=== PATIENT | female | born 1990 | race Hispanic/Latino ===

== ENCOUNTER 2022-01-01 10:11 | Inpatient (IN) | payer SELFPAY ==
[2022-01-01] MEDS ORDERED: ONDANSETRON 4 MG/2 ML VIAL ONE (11:22)
[2022-01-01] MEDS ORDERED: MORPHINE 4 MG/ML SYR ONE (11:22)
[2022-01-01] MEDS ORDERED: NA CHLORIDE 0.9% 1,000 ML ONE (11:23)
[2022-01-01 11:34] LABS: Urine Blood 3+ (Negative); Urine Glucose Negative (Negative); Urine Protein Negative (Negative); Urine Specific Gravity 1.015 (1.005-1.030); Urine pH 6.5 (5.0-7.0)
[2022-01-01 11:46] LABS: Urine Bacteria <20 /HPF (<20); Urine RBC 21-50 /HPF (None Seen)
[2022-01-01 12:00] LABS: Albumin 3.4 g/dL (3.4-5.0); Bilirubin Total 0.9 mg/dL (0.2-1.0); Potassium 3.8 mmol/L (3.5-5.1); Protein, Total 7.9 g/dL (6.4-8.2)
[2022-01-01 12:06] LABS: Absolute Lymphocytes (CBC) 1.5 K/uL (0.7-4.9); Lymphocytes % 10.5 % (15.3-44.8); MPV 7.6 fL (7.6-11.3); RBC Red Blood Cell Count 4.29 M/uL (3.86-4.86)
[2022-01-01 12:35] LABS: Urine Specific Gravity/Preg 1.015 (1.005-1.030)
--- NOTE | 2022-01-01 12:42 | RAD REPORT ---
EXAM DESCRIPTION: CT - Abdomen Pelvis W Contrast - 01/01/2022 11:42 am CLINICAL HISTORY: RLQ abdominal pain COMPARISON: <Comparisons>CT study June 2012 TECHNIQUE: Biphasic, helical CT imaging of the abdomen and pelvis was performed following 100 ml non -ionic IV contrast. No oral contrast administered. All CT scans are performed using dose optimization technique as appropriate and may include automated exposure control or mA/KV adjustment according to patient size. FINDINGS: No suspicious findings in the lung bases. The liver, spleen, and pancreas show no suspicious findings. Gallbladder and biliary tree are also wi thout suspicious finding. Symmetric renal function is seen with no hydronephrosis or suspicious renal mass. No pyelonephritis o r acute parenchymal process. No bladder abnormalities. No adrenal abnormalities. Uterus and ovaries s how no suspicious findings. No stomach or acute small bowel finding identifiable. In the central mesenteric fat slightly below th e umbilical level there is a 4-5 centimeter diameter area of edematous/ inflammatory stranding. Centr ally positioned within this area are small clusters of extraluminal free air. No abscess or drainable fluid collection. The patient's appendix courses medially from the cecum with the tip of the appendi x is in this area of air and inflammatory stranding. The tortuous sigmoid colon abuts the inferior as pect of this mesenteric abnormality. Gold of the adjacent sigmoid colon are slightly thickened and e dematous. Minimal diverticulosis is present. No pneumatosis, free fluid or abnormal fluid collection. No other areas of abnormal free air. No h ernia, mass or bulky lymphadenopathy. No suspicious bony findings. IMPRESSION: Approximately 5 cm diameter area of edematous/inflammatory stranding in the central mese nteric fat with clustered small foci of extraluminal free air centrally positioned within the mesente carlos fat abnormality. Perforation etiology is not definitive. Appendicitis is possible. The tip of the appendix abuts the m esenteric abnormality with the remainder of the appendix normal in diameter. A perforated diverticuli tis/ colitis is also possible. Tortuous and redundant sigmoid colon abuts the inferior aspect of the mesenteric abnormality. The patient has minimal diverticulosis.
--- NOTE | 2022-01-01 13:11 | ER ---
Nurse's Notes [facility] Name: Babita Real Age: 31 yrs Sex: Female : 1990 Arrival Date: 01/01/2022 Time: 10:13 Bed 4 Private MD: Diagnosis: Lower abdominal pain, unspecified Presentation: 01/01 10:54 Chief complaint: Patient states: started having pain in the belly button and it em6 radiates to the left side. I initially though it was period cramps, but it has gotten worse. I'm currently on my cycle. Coronavirus screen: At this time, the client does not indicate any symptoms associated with coronavirus-19. Ebola Screen: Patient negative for fever greater than or equal to 101.5 degrees Fahrenheit, and additional compatible Ebola Virus Disease symptoms. Initial Sepsis Screen: Does the patient meet any 2 criteria? No. Patient's initial sepsis screen is negative. Does the patient have a suspected source of infection? No. Patient's initial sepsis screen is negative. Risk Assessment: Do you want to hurt yourself or someone else? Patient reports no desire to harm self or others. Onset of symptoms was December 31, 2021. 10:54 Method Of Arrival: Ambulatory em6 10:54 Acuity: ULICES 3 em6 Triage Assessment: 10:59 General: Appears in no apparent distress. comfortable, Behavior is calm, cooperative. em6 Pain: Complains of pain in umbilical area Pain radiates to anterior aspect of right lateral abdomen Pain currently is 7 out of 10 on a pain scale. Quality of pain is described as crampy, Pain began 1 day ago. Is continuous. EENT: No signs and/or symptoms were reported regarding the EENT system. Neuro: Shrestha Agitation-Sedation Scale (RASS): 0 - Alert and Calm Level of Consciousness is awake, alert, obeys commands, Oriented to person, place, time, situation. Cardiovascular: Heart tones present Patient's skin is warm and dry. Respiratory: Airway is patent Respiratory effort is even, unlabored, Respiratory pattern is regular, symmetrical. GI: Abdomen is non-distended, Last BM was December 29, 2021. Abd is soft and non tender. : No signs and/or symptoms were reported regarding the genitourinary system. Derm: No signs and/or symptoms reported regarding the dermatologic system. Musculoskeletal: No signs and/or symptoms reported regarding the musculoskeletal system. Circulation, motion, and sensation intact. Range of motion: intact in all extremities. 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 - Social history:: Smoking status: Patient reports the use of cigarette tobacco products. Screenin:56 Abuse screen: Denies threats or abuse. Denies injuries from another. Nutritional bp screening: No deficits noted. Tuberculosis screening: No symptoms or risk factors identified. Fall Risk None identified. Assessment: 11:00 General: SEE TRIAGE NOTE. bp 11:55 Reassessment: No changes from previously documented assessment. Patient and/or family bp updated on plan of care and expected duration. Pain level reassessed. GI: Bowel sounds present X 4 quads. 13:44 Reassessment: No changes from previously documented assessment. Patient and/or family bp updated on plan of care and expected duration. Pain level reassessed. 14:50 Reassessment: No changes from previously documented assessment. Patient and/or family bp updated on plan of care and expected duration. Pain level reassessed. ADMIT INITIATED. 16:59 Reassessment: PT ON ER HOLD, SEE [facility]. bp Vital Signs: 10:54 BP 128 / 87; Pulse 80; Resp 16; Temp 98.2; Pulse Ox 100% on R/A; Weight 90.72 kg; em6 Height 5 ft. 2 in. (157.48 cm); Pain 7/10; 11:02 BP 128 / 87; Pulse 80; Resp 16; Temp 98.2; Pulse Ox 100% on R/A; Weight 90.72 kg; em6 Height 5 ft. 2 in. (157.48 cm); Pain 7/10; 11:56 BP 120 / 78; Pulse 67; Resp 16; Pulse Ox 100% ; bp 13:44 BP 119 / 100; Pulse 71; Resp 16; Pulse Ox 100% ; bp 14:50 BP 127 / 85; Pulse 71; Resp 16; Pulse Ox 100% ; bp 16:59 BP 117 / 76; Pulse 75; Resp 16; Pulse Ox 100% ; bp 11:02 Body Mass Index 36.58 (90.72 kg, 157.48 cm) em6 ED Course: 10:13 Patient arrived in ED. am2 10:16 Robby Funk PA is PHCP. cp 10:16 Mable Díaz MD is Attending Physician. cp 10:42 Jorge Galvan, PEDRITO is Primary Nurse. bp 10:58 Triage completed. em6 11:30 Inserted saline lock: 20 gauge in right antecubital area, using aseptic technique. bp Blood collected. 11:44 CT Abd/Pelvis - IV Contrast Only In Process Unspecified. EDMS 11:56 Patient has correct armband on for positive identification. Bed in low position. Call bp light in reach. Side rails up X2. 12:00 Arm band placed on. bp 13:10 Antony Barnes MD is Hospitalizing Provider. cp 16:59 No provider procedures requiring assistance completed. Patient admitted, IV remains in bp place. Administered Medications: 11:30 Drug: NS 0.9% 1000 ml Route: IV; Rate: 1 bolus; Site: right antecubital; bp 13:41 Follow up: IV Status: Completed infusion; IV Intake: 1000ml bp 11:30 Drug: Zofran (Ondansetron) 4 mg Route: IVP; Site: right antecubital; bp 13:41 Follow up: Response: No adverse reaction bp 11:30 Drug: morphine 4 mg Route: IVP; Infused Over: 4 mins; Site: right antecubital; bp 13:42 Follow up: Response: Pain is decreased bp 13:30 Drug: Mefoxin (cefOXitin) 1 grams Route: IVPB; Infused Over: 30 mins; Site: right bp antecubital; 17:00 Follow up: IV Status: Completed infusion; IV Intake: 100ml bp 13:30 Drug: metroNIDAZOLE 500 mg Volume: 100 ml; Route: IVPB; Infused Over: 30 mins; Site: bp right antecubital; 17:00 Follow up: IV Status: Completed infusion; IV Intake: 100ml bp Medication: 11:56 VIS not applicable for this client. bp Intake: 13:41 IV: 1000ml; Total: 1000ml. bp 17:00 IV: 100ml; Total: 1100ml. bp 17:00 IV: 100ml; Total: 1200ml. bp Outcome: 13:10 Decision to Hospitalize by Provider. cp 16:59 Admitted to ER Hold. Please see [facility] for further documentation. bp 17:01 Condition: stable bp 17:01 Instructed on the need for admit. 20:44 Admitted to Report called to [facility] Patient going to [facility] tw5 21:08 Patient left the ED. vc1 Signatures: Dispatcher [employer] EDMS Robby Funk PA PA cp Tata Mar am2 Jorge Galvan, RN RN bp Ping Marroquin tw5 Dorita Childress RN RN vc1 Samantha Francis, RN RN em6
--- NOTE | 2022-01-01 13:11 | EDPHYS ---
Physician Documentation [facility] Name: Babita Real Age: 31 yrs Sex: Female : 1990 Arrival Date: 01/01/2022 Time: 10:13 Bed 4 Private MD: ED Physician Mable Díaz HPI: 01/01 11:05 This 31 yrs old Female presents to ER via Ambulatory with complaints of cp Abdominal Pain - RLQ. 11:05 The patient presents with abdominal pain right lower quadrant. Onset: The cp symptoms/episode began/occurred 2 day(s) ago. The symptoms radiate to right back. Associated signs and symptoms: Pertinent positives: nausea, vaginal bleeding. The symptoms are described as constant. 11:05 Severity of pain: in the emergency department the pain is unchanged despite home cp interventions. Patient reports pain started mid abdomen and now is located RLQ abdomen. 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 - Social history:: Smoking status: Patient reports the use of cigarette tobacco products. ROS: 11:10 Constitutional: Negative for body aches, chills, fever, poor PO intake. cp 11:10 Eyes: Negative for injury, pain, redness, and discharge. cp 11:10 ENT: Negative for drainage from ear(s), ear pain, sore throat, difficulty swallowing, difficulty handling secretions. 11:10 Cardiovascular: Negative for chest pain. 11:10 Respiratory: Negative for cough, shortness of breath, wheezing. 11:10 Abdomen/GI: Positive for abdominal pain, Negative for vomiting, diarrhea, constipation. 11:10 Back: Positive for flank pain, on the right. 11:10 : Positive for vaginal bleeding, Negative for urinary symptoms. 11:10 Neuro: Negative for altered mental status, headache, syncope, weakness. 11:10 All other systems are negative. Exam: 11:10 Constitutional: The patient appears in no acute distress, alert, awake, non-toxic, well cp developed, well nourished, uncomfortable. 11:10 Head/Face: Normocephalic, atraumatic. cp 11:10 Eyes: Periorbital structures: appear normal, Conjunctiva: normal, no exudate, no injection, Sclera: no appreciated abnormality, Lids and lashes: appear normal, bilaterally. 11:10 ENT: External ear(s): are unremarkable, Nose: is normal, Mouth: Lips: moist, Oral mucosa: pink and intact, moist, Posterior pharynx: Airway: no evidence of obstruction, patent. 11:10 Chest/axilla: Inspection: normal. 11:10 Cardiovascular: Rate: normal, Rhythm: regular. 11:10 Respiratory: the patient does not display signs of respiratory distress, Respirations: normal, no use of accessory muscles, no retractions, labored breathing, is not present, Breath sounds: are clear throughout, no decreased breath sounds, no stridor, no wheezing. 11:10 Abdomen/GI: Inspection: abdomen appears normal, Bowel sounds: active, all quadrants, Palpation: soft, in all quadrants, moderate abdominal tenderness, in the right lower quadrant, rebound tenderness, is not appreciated, voluntary guarding, is elicited in the right lower quadrant. 11:10 Back: CVA tenderness, is absent. 11:10 Skin: cellulitis, is not appreciated, no rash present. 11:10 Neuro: Orientation: to person, place \T\ time. Mentation: is normal, Motor: moves all fours, strength is normal, Sensation: is normal, Gait: is steady, at a normal pace, without difficulty. Vital Signs: 10:54 BP 128 / 87; Pulse 80; Resp 16; Temp 98.2; Pulse Ox 100% on R/A; Weight 90.72 kg; em6 Height 5 ft. 2 in. (157.48 cm); Pain 7/10; 11:02 BP 128 / 87; Pulse 80; Resp 16; Temp 98.2; Pulse Ox 100% on R/A; Weight 90.72 kg; em6 Height 5 ft. 2 in. (157.48 cm); Pain 7/10; 11:56 BP 120 / 78; Pulse 67; Resp 16; Pulse Ox 100% ; bp 13:44 BP 119 / 100; Pulse 71; Resp 16; Pulse Ox 100% ; bp 14:50 BP 127 / 85; Pulse 71; Resp 16; Pulse Ox 100% ; bp 16:59 BP 117 / 76; Pulse 75; Resp 16; Pulse Ox 100% ; bp 11:02 Body Mass Index 36.58 (90.72 kg, 157.48 cm) em6 MDM: 10:41 Patient medically screened. cp 13:00 Data reviewed: vital signs, nurses notes, lab test result(s), radiologic studies, CT cp scan. 13:00 Counseling: I had a detailed discussion with the patient and/or guardian regarding: the cp historical points, exam findings, and any diagnostic results supporting the discharge/admit diagnosis, lab results, radiology results, the need for further work-up and treatment in the hospital. Physician consultation: Antony Barnes MD was contacted at 13:00, regarding admission, to the medical/surgical unit. patient's condition. 01/01 10:58 Order name: CBC with Diff; Complete Time: 12:20 cp 01/01 12:21 Interpretation: Normal except: WBC 14.30; MARGIE% 82.9; LYM% 10.5; NEUT A 11.9. cp 01/01 10:58 Order name: CMP; Complete Time: 12:20 cp 01/01 12:21 Interpretation: Normal except: GLUC 109. cp 01/01 10:58 Order name: Lipase; Complete Time: 12:20 cp 01/01 10:58 Order name: Urine Microscopic Only; Complete Time: 12:20 cp 01/01 12:21 Interpretation: Normal except: URBC 21-50. cp 01/01 11:34 Order name: Urine Dipstick-Ancillary; Complete Time: 12:20 EDMS 01/01 11:37 Order name: Urine --Ancillary (enter results); Complete Time: 12:50 eb 01/01 11:56 Order name: Urine Culture EDVT 01/01 13:30 Order name: Basic Metabolic Panel EDVT 01/01 13:30 Order name: Basic Metabolic Panel EDVT 01/01 13:30 Order name: CBC with Automated Diff EDVT 01/01 13:30 Order name: CBC with Automated Diff EDVT 01/01 13:30 Order name: Lipase EDVT 01/01 13:30 Order name: Lipase EDVT 01/01 13:30 Order name: Liver (Hepatic) Function EDVT 01/01 10:58 Order name: CT Abd/Pelvis - IV Contrast Only; Complete Time: 12:50 cp 01/01 10:58 Order name: IV Saline Lock; Complete Time: 11:34 cp 01/01 10:58 Order name: Labs collected and sent; Complete Time: 11:34 cp 01/01 10:58 Order name: Urine Dipstick-Ancillary (obtain specimen); Complete Time: 11:34 cp 01/01 10:58 Order name: Urine Test (obtain specimen); Complete Time: 11:34 cp 01/01 12:57 Order name: NPO; Complete Time: 13:30 cp 01/01 13:30 Order name: Diet - Ice Chips ; Complete Time: 13:41 EDMS 01/01 13:30 Order name: Liver (Hepatic) Function EDMS 01/01 15:39 Order name: SARS RAPID eb 01/01 16:30 Order name: SARS-COV-2 Antigen Rapid EDMS Administered Medications: 11:30 Drug: NS 0.9% 1000 ml Route: IV; Rate: 1 bolus; Site: right antecubital; bp 13:41 Follow up: IV Status: Completed infusion; IV Intake: 1000ml bp 11:30 Drug: Zofran (Ondansetron) 4 mg Route: IVP; Site: right antecubital; bp 13:41 Follow up: Response: No adverse reaction bp 11:30 Drug: morphine 4 mg Route: IVP; Infused Over: 4 mins; Site: right antecubital; bp 13:42 Follow up: Response: Pain is decreased bp 13:30 Drug: Mefoxin (cefOXitin) 1 grams Route: IVPB; Infused Over: 30 mins; Site: right bp antecubital; 17:00 Follow up: IV Status: Completed infusion; IV Intake: 100ml bp 13:30 Drug: metroNIDAZOLE 500 mg Volume: 100 ml; Route: IVPB; Infused Over: 30 mins; Site: bp right antecubital; 17:00 Follow up: IV Status: Completed infusion; IV Intake: 100ml bp Disposition Summary: 01/01/22 13:10 Hospitalization Ordered Hospitalization Status: Inpatient Admission cp Provider: Antony Barnes cp Condition: Stable cp Problem: new cp Symptoms: have improved cp Bed/Room Type: Standard cp Location: [facility] [place](01/01/22 19:52) cg Room Assignment: [facility](01/01/22 19:52) cg Diagnosis - Lower abdominal pain, unspecified cp Forms: - Medication Reconciliation Form cp - SBAR form cp Signatures: Dispatcher [employer] EDMS Robby Funk PA PA cp Kamryn Graham RN RN cg Jorge Galvan RN RN bp Samantha Francis RN RN em6 Corrections: (The following items were deleted from the chart) 16:55 13:10 Telemetry/MedSurg (Inpatient) cp bp 16:55 13:10 cp bp 19:52 16:55 [facility] ER HOLD bp cg 19:52 16:55 ERHOLD- bp cg
[2022-01-01] MEDS ORDERED: MORPHINE 4 MG/ML SYR IV PRN (13:24)
[2022-01-01] MEDS ORDERED: CEFOXITIN SODIUM 1 GM/VIAL ONE ×2 (13:41→18:55)
[2022-01-01] MEDS ORDERED: NA CHLORIDE 0.9% 100 ML ONE ×2 (13:42→18:55)
[2022-01-01] MEDS: D5 0.45 NS 1,000 ML IV SCH (14:00)
[2022-01-01 16:29] LABS: SARS-CoV-2 Antigen Rapid Res Negative (Negative)
[2022-01-01] MEDS ORDERED: D5 0.45 NS 1,000 ML IV ONE (17:19)
--- NOTE | 2022-01-01 17:55 | P.HP ---
Date of Service: 01/01/22 Chief complaint: Abdominal pain History of present Illness: Patient is a 31-year-old female presents to the emergency room with 2-day history of periumbilical and right sided abdominal pain associated with radiation to the right side of the back. Patient is never had pain like this before. Patient denies nausea, vomiting, diarrhea, constipation, blood per rectum, dysuria or hematuria. Patient is on her menstruation cycle. She initially thought the pain was related to her cycle and she tried Midol with no relief. Patient also has anorexia. Review of systems: Patient denies sore throat, runny nose, headaches, dizziness, cough, chest pain, fever or chills Past medical history: Negative Past surgical history: Negative Allergies: None Social history: Patient does smoke and denies drinking alcohol. Patient has been counseled Family history: Noncontributory Vital signs: Stable, afebrile Physical exam: Awake alert oriented x3 Head and neck: Cranial 2 through 12 grossly within normal limits, no neck masses, no JVD, throat clear neck supple Chest: Clear Heart: S1-S2 Abdomen: Soft, nondistended, tenderness just below the umbilicus with no rigidity or guarding. No Rovsing sign. Diagnostic data: CT of the abdomen pelvis reviewed with Dr. Morales. Shows a inflammatory mass approximately 5 cm in the central mesentery with micro air present inside of it. the base of the appendix appeared to be normal but, the tip is involved in this inflammatory mass. However, there is diverticula of the sigmoid colon that is involved as well with the inflammatory mass. No abscess is present. Patient's white count is 14,000. Assessment: Inflammatory mass with microperforation questionable etiology: Other acute appendicitis or sigmoid diverticulitis. Plan/recommendation: We will try treating this with IV antibiotics and then oral antibiotics for 2 weeks. Should the patient not improve with medical management, she will need surgical intervention. If however, she does improve with antibiotics, we can do a diagnostic laparoscopy in 4 to 6 weeks and perform an appendectomy and evaluate the sigmoid colon at that time. The plan of care was discussed in detail with the patient. Patient expressed concern that she has a sick father at home and wants to go home soon as possible. I explained to her the medical consequences of leaving too soon and she has decided to stay for IV antibiotics for at least a day or 2. This recommendation however changes if the patient's condition worsens. CC:
[2022-01-01] MEDS: METRONIDAZOLE 500mg IVPB 500 MG/100 ML BAG IV SCH (18:00)
[2022-01-01] MEDS: CEFOXITIN 1 GM in NA CHLORIDE 0.9% 50 ML IVPB SCH (18:00)
[2022-01-01 18:37] VITALS: BMI 36.6
[2022-01-01] MEDS ORDERED: METRONIDAZOLE 500mg IVPB 500 MG/100 ML BAG IV ONE (18:55)
[2022-01-01] MEDS: ONDANSETRON 4 MG/2 ML VIAL IV PRN (23:31)
[2022-01-01 23:32] VITALS: O2SAT 100
[2022-01-02] MEDS ORDERED: METRONIDAZOLE 500mg IVPB 500 MG/100 ML BAG IV ONE (00:25)
[2022-01-02] MEDS ORDERED: CEFOXITIN SODIUM 1 GM/VIAL ONE (00:25)
[2022-01-02] MEDS: CEFOXITIN 1 GM in NA CHLORIDE 0.9% 50 ML IVPB SCH ×5 (00:35→23:17)
[2022-01-02] MEDS ORDERED: NA CHLORIDE 0.9% 50 ML ONE ×2 (00:36→06:23)
[2022-01-02] MEDS: METRONIDAZOLE 500mg IVPB 500 MG/100 ML BAG IV SCH ×5 (01:16→23:18)
[2022-01-02] MEDS: D5 0.45 NS 1,000 ML IV SCH ×3 (04:16→15:46)
[2022-01-02 04:42] LABS: Absolute Lymphocytes (CBC) 1.2 K/uL (0.7-4.9); Hematocrit 35.9 % (36.0-45.0); Lymphocytes % 7.5 % (15.3-44.8); MCV 90.8 fL (80-100); MPV 7.5 fL (7.6-11.3); RBC Red Blood Cell Count 3.95 M/uL (3.86-4.86)
[2022-01-02 05:09] LABS: Albumin 2.9 g/dL (3.4-5.0); Bilirubin Direct 0.2 mg/dL (0-0.2); Bilirubin Total 0.7 mg/dL (0.2-1.0); Protein, Total 7.1 g/dL (6.4-8.2)
--- NOTE | 2022-01-02 09:43 | P.PN ---
Date of Service: 01/02/22 Subjective: Patient is hungry. Patient's pain is much better. Objective: Vitals stable, afebrile. White count is 15,000 Abdomen: Soft, nondistended, positive bowel sounds, tenderness infraumbilically and right of umbilicus without peritonitis. Assessment: Inflammatory mass secondary to either a perforated appendiceal tip or sigmoid diverticulitis Plan: Continue IV antibiotics. We will begin diet with clear liquids. Check white count tomorrow. Patient is making slow progress. Anticipate discharge in 2 to 3 days. CC:
[2022-01-02] MEDS: ONDANSETRON 4 MG/2 ML VIAL IV PRN (19:57)
[2022-01-03] MEDS: CEFOXITIN 1 GM in NA CHLORIDE 0.9% 50 ML IVPB SCH ×3 (05:11→18:13)
[2022-01-03] MEDS: D5 0.45 NS 1,000 ML IV SCH ×2 (05:29→06:00)
[2022-01-03] MEDS: METRONIDAZOLE 500mg IVPB 500 MG/100 ML BAG IV SCH ×4 (05:41→21:47)
[2022-01-03 05:54] LABS: Absolute Lymphocytes (CBC) 1.7 K/uL (0.7-4.9); Hematocrit 40.8 % (36.0-45.0); MCV 92.9 fL (80-100); MPV 7.9 fL (7.6-11.3); RBC Red Blood Cell Count 4.39 M/uL (3.86-4.86)
[2022-01-03 08:37] LABS: Blood Morphology Comment NOT SEEN (NOT SEEN); Platelet Estimate ADEQ
--- NOTE | 2022-01-03 10:38 | P.PN ---
Date of Service: 01/03/22 Subjective: Patient is tolerating clear liquids Objective: Vitals stable, afebrile. White count is 13.9 Abdomen: Soft, nondistended, positive bowel sounds, minimal tenderness with no evidence of peritonitis Assessment: Inflammatory mass secondary to either a perforated appendiceal tip or sigmoid diverticulitis Plan: Continue IV antibiotics. We will advance diet today. Patient is clinically improving. Discharge in a.m. on oral antibiotics. Check CBC in a.m. CC:
[2022-01-04] MEDS: CEFOXITIN 1 GM in NA CHLORIDE 0.9% 50 ML IVPB SCH ×3 (00:20→11:47)
[2022-01-04] MEDS: ONDANSETRON 4 MG/2 ML VIAL IV PRN (01:40)
[2022-01-04 05:28] LABS: Hematocrit 36.4 % (36.0-45.0); Lymphocytes % 17.6 % (15.3-44.8); MCV 92.4 fL (80-100); MPV 7.7 fL (7.6-11.3); RBC Red Blood Cell Count 3.94 M/uL (3.86-4.86)
[2022-01-04] MEDS: METRONIDAZOLE 500mg IVPB 500 MG/100 ML BAG IV SCH ×2 (05:36→14:06)
[2022-01-04] MEDS: D5 0.45 NS 1,000 ML IV SCH (05:46)
[2022-01-04 12:04] VITALS: BP 128/83; TEMP 97.9
--- NOTE | 2022-01-04 15:49 | DS ---
Date of Discharge: 01/04/2022 Admitting Diagnosis: Abdominal pain with an inflammatory mass in the abdomen with etiology being a p erforated distal appendix or a sigmoid diverticulitis. Hospital Course: The patient was managed medically with IV antibiotics. The patient had leukocytosi s, which has slowly improved from high of 15,000, today is 11,000. The patient's pain improved after the first 24 hours and has progressively gotten better and the patient does not have pain anymore. Vitals have remained stable. She is afebrile. She can tolerate GI soft diet without difficulty. He r white count is down to 11.6 and there is no left shift. Therefore, the patient will be discharged to home. Disposition: Home. Condition: Stable. Discharge Instructions: Resume home medications and diet. Activity as tolerated. Follow up in my o ffice in 1 to 2 weeks, call for appointment. Cipro 500 mg p.o. q.12, Flagyl 500 mg p.o. q.8. /MODL Voice ID: [id number] Report ID: [id number]
== END 2022-01-04 15:00 | disposition home or self-care (01) | DRG 392 ==
LOC: ER 10:11 → ERHOLD 13:26 → 2ND-WC 20:51
PROVIDERS: ADMIT Surgery; ATTEND Surgery
DX: R19.03 Right lower quadrant abdominal swelling, mass and lump (principal); F17.210 Nicotine dependence, cigarettes, uncomplicated; D72.829 Elevated white blood cell count, unspecified; Z20.822 Contact with and (suspected) exposure to COVID-19
CPT/HCPCS: 36415; 74177; 80048; 80053; 80076; 81003; 81015; 81025; 82565; 83690; 85025; 87086; 87088; 87811; 94010; 96361; 96365; 96366; 96368; 96375; 99285; J0694; J2405; J7030; J7799; Q9967

== ENCOUNTER 2022-01-10 14:10 | Emergency (ER) | payer SELFPAY ==
--- NOTE | 2022-01-10 15:35 | RAD REPORT ---
EXAM DESCRIPTION: US - UPPER EXTREMITY VENOUS UNILATE - 01/10/2022 3:16 pm CLINICAL HISTORY: Swelling, redness COMPARISON: None. TECHNIQUE: Real-time sonographic evaluation of the right upper extremity deep venous system was perf ormed. FINDINGS: Color Doppler, grayscale, and spectral analysis was performed. There is clot in the right cephalic vein. The vein is noncompressible and no flow is identified by co mateo Doppler. The other veins including the right IJ, subclavian, axillary, brachial, basilic, radial, and ulnar are patent and compressible. IMPRESSION: Positive for venous thrombosis in the right cephalic vein.
[2022-01-10 16:01] LABS: Hematocrit 41.2 % (36.0-45.0); MPV 7.3 fL (7.6-11.3)
[2022-01-10 16:04] LABS: Absolute Lymphocytes (CBC) 2.4 K/uL (0.7-4.9); Lymphocytes % 24.9 % (15.3-44.8); MCV 92.2 fL (80-100); RBC Red Blood Cell Count 4.47 M/uL (3.86-4.86)
[2022-01-10 16:22] LABS: Bilirubin Total 0.1 mg/dL (0.2-1.0); Potassium 4.1 mmol/L (3.5-5.1); Protein, Total 7.4 g/dL (6.4-8.2)
--- NOTE | 2022-01-10 17:11 | RAD REPORT ---
EXAM DESCRIPTION: CT - Chest For Pe Angio - 01/10/2022 5:00 pm CLINICAL HISTORY: dvt COMPARISON: No comparisons TECHNIQUE: Dynamically enhanced axial 3 mm thick images of the chest were obtained during administra tion of <100> mL Isovue 370 IV contrast. Coronal and oblique reconstruction images were generated and reviewed. Exam utilizes a protocol for optimal evaluation of pulmonary arterial tree. Maximum intensity projections 3D imaging was utilized All CT scans are performed using dose optimization technique as appropriate and may include automated exposure control or mA/KV adjustment according to patient size. FINDINGS: Chest Wall: No suspicious thyroid nodules or pathologic lymphadenopathy. Lungs: No acute abnormality. Pleura: No significant effusions or pneumothorax. Mediastinum/kleber: No pathologic lymphadenopathy. Pulmonary arteries/Aorta: No filling defect identified. No aortic aneurysm. Heart: No significant pericardial effusion. Normal heart size. Upper abdomen: No acute abnormality. Bones: No acute abnormality. IMPRESSION: Negative for pulmonary embolism. No acute findings in the chest.
--- NOTE | 2022-01-10 17:22 | RAD REPORT ---
EXAM DESCRIPTION: CTAbdomen Pelvis W Contrast - 01/10/2022 5:00 pm CLINICAL HISTORY: abdominal pain COMPARISON: Abdomen Pelvis W Contrast dated 01/01/2022; CT ABD PELVIS W CONTRAST dated 06/21/2012 TECHNIQUE: CT of the abdomen and pelvis was performed. All CT scans are performed using dose optimization technique as appropriate and may include automated exposure control or mA/KV adjustment according to patient size. FINDINGS: Lower chest: No acute abnormality. Liver: No acute abnormality or suspicious lesions. Biliary: No biliary ductal dilatation. Stomach: No significant focal abnormality. Duodenum: No significant focal abnormality. Pancreas: No significant abnormality. Spleen: No significant abnormality. Adrenal: No suspicious lesions. Kidney/ureter: No hydronephrosis. No renal calculi. Retroperitoneum: No retroperitoneal adenopathy. Vascular: No aneurysm. Bowel: The appendix does not appear inflamed and abuts the mesenteric collection.. Peritoneum: Free air is again noted in the region of the ileocolic mesentery. There is some increased fluid at this location. It measures approximately 5.7 x 4.4 cm. Bladder: Grossly unremarkable. Reproductive: No adnexal masses. Bones: No acute fracture. Other: n/a IMPRESSION: Ileocolic mesenteric inflammation/perforation again identified. The fluid component of t his process has increased since 01/01/22 and presumably represents a developing abscess. The collectio n is not well formed and so percutaneous drainage could be difficult. Percutaneous access to this loc ation would also be challenging, though not impossible. The source of the perforation is favored to b e the sigmoid colon rather than the appendix. Both structures come in to close approximation.
[2022-01-10 18:01] LABS: Urine Blood Negative (Negative); Urine Glucose Negative (Negative); Urine Protein Negative (Negative); Urine Specific Gravity 1.015 (1.005-1.030)
[2022-01-10 19:48] LABS: SARS-CoV-2 Antigen Rapid Res Negative (Negative)
--- NOTE | 2022-01-10 20:28 | ER ---
Nurse's Notes [facility] Name: Babita Real Age: 31 yrs Sex: Female : 1990 Arrival Date: 01/10/2022 Time: 14:13 Bed 12 Private MD: Diagnosis: Intra-abdominal abscess;Deep Vein Thrombosis Presentation: 01/10 14:15 Chief complaint: Patient states: they put an iv in my arm last time i was here. they tw2 flushed it and they tried to flush it after she opened the purple clip. my RIGHT arm is swelling and painful. i told the nurse and she moved the iv at. but the antibiotics and fluids ran for a few hours. it has been red and swollen since that happened. this was last sunday. 14:15 Method Of Arrival: Ambulatory tw2 14:18 Coronavirus screen: At this time, the client does not indicate any symptoms associated tw2 with coronavirus-19. Ebola Screen: Patient denies travel to an Ebola-affected area in the 21 days before illness onset. Initial Sepsis Screen: Does the patient meet any 2 criteria? No. Patient's initial sepsis screen is negative. Does the patient have a suspected source of infection? No. Patient's initial sepsis screen is negative. Risk Assessment: Do you want to hurt yourself or someone else? Patient reports no desire to harm self or others. Onset of symptoms was January 10, 2022. 14:18 Acuity: ULICES 3 tw2 Triage Assessment: 14:19 General: Appears in no apparent distress. uncomfortable, Behavior is calm, cooperative, tw2 appropriate for age. Pain: Complains of pain in right arm. Neuro: Level of Consciousness is awake, alert, obeys commands, Oriented to person, place, time, situation. 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 - Social history:: Smoking status: . Screenin:37 Abuse screen: Denies threats or abuse. Nutritional screening: No deficits noted. tw2 Tuberculosis screening: No symptoms or risk factors identified. Fall Risk None identified. Assessment: 14:45 General: Appears uncomfortable, Behavior is calm, cooperative. Pain: Complains of pain iw in right arm. Neuro: Level of Consciousness is awake, alert, obeys commands, Oriented to person, place, time, situation, Moves all extremities. Cardiovascular: Patient's skin is warm and dry. Respiratory: Respiratory effort is even, unlabored, Respiratory pattern is regular, symmetrical. Derm: Skin is intact. Musculoskeletal: Capillary refill < 3 seconds, in bilateral fingers. Swelling present in right arm. 16:20 Reassessment: Patient appears in no apparent distress at this time. Patient and/or iw family updated on plan of care and expected duration. Pain level reassessed. Patient is alert, oriented x 3, equal unlabored respirations, skin warm/dry/pink. 18:38 Reassessment: Patient appears in no apparent distress at this time. Patient and/or iw family updated on plan of care and expected duration. Pain level reassessed. Patient is alert, oriented x 3, equal unlabored respirations, skin warm/dry/pink. Vital Signs: 14:18 BP 137 / 96; Pulse 86; Resp 17; Temp 97.8(O); Pulse Ox 100% on R/A; Pain 9/10; tw2 22:42 BP 141 / 88; Pulse 78; Resp 18 S; Pulse Ox 98% on R/A; as6 22:46 Pain 0/10; as6 ED Course: 14:13 Patient arrived in ED. tw2 14:19 Triage completed. tw2 14:19 Arm band placed on. tw2 14:20 Sudhir Arnett PA is PHCP. [facility] 14:20 Marcus Altman DO is Attending Physician. [facility] 14:20 Bed in low position. Call light in reach. Adult w/ patient. tw2 14:22 Joleen Adams, RN is Primary Nurse. iw 15:18 UPPER EXTREMITY VENOUS UNILATE In Process Unspecified. EDMS 15:54 Initial lab(s) drawn, by me, sent to lab. Inserted saline lock: 22 gauge in left iw antecubital area, using aseptic technique. Blood collected. 17:01 CT Chest For PE Angio In Process Unspecified. EDMS 17:01 CT Abd/Pelvis - IV Contrast Only In Process Unspecified. EDMS 19:20 initiated a transfer with Radha from [facility]. mw2 19:55 Connected Sudhir LE with the Surgeon from [facility]. mw2 20:30 awaiting a clean bed at [facility]. mw2 21:16 administrative approval given by Radha Navarro/ patient has been accepted to [address] to bed 1255/ Dr. Leyva accepted the patient in transfer/report to be called to [phone]. 22:27 [facility] 20 minutes. mw2 22:46 No provider procedures requiring assistance completed. Patient transferred, IV remains as6 in place. Administered Medications: 20:55 Drug: Zosyn (piperacillin-tazobactam) 3.375 grams Route: IVPB; Infused Over: 60 mins; as6 Site: left antecubital; 21:16 Follow up: Response: No adverse reaction; IV Status: Completed infusion; IV Intake: as6 100ml 21:16 Drug: vancoMYCIN 1 grams Route: IVPB; Infused Over: 2 hrs; Site: left antecubital; as6 22:48 Follow up: Response: No adverse reaction; IV Status: Completed infusion; IV Intake: as6 250ml Medication: 14:38 VIS not applicable for this client. tw2 Intake: 21:16 IV: 100ml; Total: 100ml. as6 22:48 IV: 250ml; Total: 350ml. as6 Outcome: 20:27 ER care complete, transfer ordered by MD. begum 22:46 Transferred by [facility] to [facility], Transfer form completed. as6 X-rays sent w/ patient. 22:46 Condition: stable 22:46 Instructed on the need for transfer. 22:49 Patient left the ED. as6 Signatures: Dispatcher [employer] EDMS Sudhir Arnett PA PA jmm Williams, Irene, RN RN iw Cynthia Munoz RN RN tw2 Mervat Anthony mw2 Jeremiah Schreiber RN RN as6 Corrections: (The following items were deleted from the chart) 14:19 14:15 Chief complaint: Patient states: they put an iv in my arm last time i was here. tw2 they flushed it and they tried to flush it after she opened the purple clip. my RIGHT arm is swelling and painful. i told the nurse and she moved the iv at. but the antibiotics and fluids ran for a few hours. it has been red and swollen since that happened. tw2
--- NOTE | 2022-01-10 20:28 | EDPHYS ---
Physician Documentation [facility] Name: Babita Real Age: 31 yrs Sex: Female : 1990 Arrival Date: 01/10/2022 Time: 14:13 Bed 12 Private MD: ED Physician Marcus Altman HPI: 01/10 14:29 This 31 yrs old Female presents to ER via Ambulatory with complaints of Arm jmm Problem. 14:29 The patient or guardian complains of pain, that is acute. The complaints affect the jmm right antecubital area. Onset: The symptoms/episode began/occurred gradually, 1 week(s) ago. This is a 31-year-old female with no chronic medical conditions the presents to the emergency department with complaints of right arm swelling beginning initially after recent admission. Patient states she developed swelling at site of her IV. Patient states having constant abdominal pain but is no worse than since being discharged from the hospital. Patient was initially hospitalized for an intra-abdominal perforation. Patient is currently taking Cipro and Flagyl.. 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 - Social history:: Smoking status: . ROS: 14:29 Constitutional: Negative for fever, chills, and weight loss, Cardiovascular: Negative jmm for chest pain, palpitations, and edema, Respiratory: Negative for shortness of breath, cough, wheezing, and pleuritic chest pain. 14:29 MS/extremity: Positive for pain, swelling. 14:29 All other systems are negative. Exam: 14:29 Constitutional: This is a well developed, well nourished patient who is awake, alert, jmm and in no acute distress. Head/Face: atraumatic. Eyes: EOMI, no conjunctival erythema appreciated ENT: Moist Mucus Membranes Neck: Trachea midline, Supple Chest/axilla: Normal chest wall appearance and motion. Cardiovascular: Regular rate and rhythm. No edema appreciated Respiratory: Normal respirations, no respiratory distress appreciated Abdomen/GI: Non distended Back: Normal ROM 14:29 Skin: Erythema and induration noted to the right antecubital region. Tender to palpation,. 14:29 Neuro: Orientation: is normal, Mentation: is normal, Memory: is normal. 14:29 Psych: Behavior/mood is pleasant, cooperative. Vital Signs: 14:18 BP 137 / 96; Pulse 86; Resp 17; Temp 97.8(O); Pulse Ox 100% on R/A; Pain 9/10; tw2 22:42 BP 141 / 88; Pulse 78; Resp 18 S; Pulse Ox 98% on R/A; as6 22:46 Pain 0/10; as6 MDM: 14:29 Patient medically screened. [facility] 19:13 Data reviewed: vital signs, nurses notes. Counseling: I had a detailed discussion with kel the patient and/or guardian regarding: the historical points, exam findings, and any diagnostic results supporting the discharge/admit diagnosis. 20:19 ED course: I discussed the patient with Dr. Barnes whom recommended transfer for IR. I kel discussed the patient with general surgery whom will consult on transfer. I discussed the patient with Dr. Leyva whom accepted the patient for transfer. . 01/10 14:30 Order name: CBC with Diff; Complete Time: 16:07 [facility] 01/10 14:30 Order name: CMP; Complete Time: 16:26 [facility] 01/10 14:30 Order name: Lactate; Complete Time: 16:26 [facility] 01/10 14:30 Order name: Blood Culture Adult (2) [facility] 01/10 15:54 Order name: Test, Serum; Complete Time: 20:57 [facility] 01/10 18:01 Order name: Urine Dipstick-Ancillary; Complete Time: 18:02 [facility] 01/10 14:30 Order name: Saline Lock; Complete Time: 15:53 [facility] 01/10 14:35 Order name: UPPER EXTREMITY VENOUS UNILATE; Complete Time: 15:36 [facility] 01/10 15:47 Order name: CT Chest For PE Angio; Complete Time: 17:23 [facility] 01/10 15:48 Order name: CT Abd/Pelvis - IV Contrast Only; Complete Time: 17:24 [facility] 01/10 19:18 Order name: SARS RAPID; Complete Time: 19:53 [facility] 01/10 15:48 Order name: Urine Test (obtain specimen); Complete Time: 18:01 jmm Administered Medications: 20:55 Drug: Zosyn (piperacillin-tazobactam) 3.375 grams Route: IVPB; Infused Over: 60 mins; as6 Site: left antecubital; 21:16 Follow up: Response: No adverse reaction; IV Status: Completed infusion; IV Intake: as6 100ml 21:16 Drug: vancoMYCIN 1 grams Route: IVPB; Infused Over: 2 hrs; Site: left antecubital; as6 22:48 Follow up: Response: No adverse reaction; IV Status: Completed infusion; IV Intake: as6 250ml Disposition: 19:14 Co-signature as Attending Physician, Marcus Altman DO I agree with the assessment and ms3 plan of care. PA/TECHNICAL SPEC's history reviewed, patient interviewed, and examined. HPI: 31-year-old female presents for right arm pain after having IV placed and right antecubital fossa during previous hospitalization for abdominal pain. Patient states she is having continued abdominal pain. My personal exam of patient reveals: Patient is alert and oriented x4, in no apparent distress, nontoxic appearing. Heart rate and rhythm are regular without murmurs rubs or gallops. Lungs are clear to auscultation bilaterally. Right antecubital fossa significant for induration with indurated papule. Abdomen is significant for tenderness. I agree with assessment and care plan and confirm the diagnosis (es) above. Disposition Summary: 01/10/22 20:27 Transfer Ordered Transfer Location: [facility] Reason: Higher level of care jmm Condition: Stable jmm Problem: an ongoing problem jmm Symptoms: have worsened jmm Accepting Physician: Dr. Leyva(01/10/22 22:49) as6 Diagnosis - Intra-abdominal abscess jmm - Deep Vein Thrombosis jmm Forms: - Medication Reconciliation Form jmm - SBAR form jmm Signatures: Dispatcher [employer] EDMS Sudhir Arnett PA PA jmm Wise, Tara, RN RN tw2 Marcus Altman DO DO ms3 Jeremiah Schreiber RN RN as6 Corrections: (The following items were deleted from the chart) 14:33 14:31 Extremity Venous Uni Ltd+[email or web address] ordered. EDMS EDMS 22:49 20:27 Dr. Gordon begum as6
[2022-01-10] MEDS ORDERED: NA CHLORIDE 0.9% 100 ML ONE (20:37)
[2022-01-10] MEDS ORDERED: NA CHLORIDE 0.9% 250 ML ONE (20:37)
[2022-01-10] MEDS ORDERED: VANCOMYCIN 1 GM/VIAL ONE (20:38)
[2022-01-10] MEDS ORDERED: PIPERACIL/TAZO 3.375 GM VIAL IV ONE (20:38)
[2022-01-10 23:57] VITALS: TEMP 97.8
[2022-01-11] VITALS: BP 141/88; O2SAT 98
== END 2022-01-10 22:49 | disposition short-term general hospital (02) ==
LOC: ER 14:10
DX: I82.621 Acute embolism and thrombosis of deep veins of right upper extremity (principal); K65.1 Peritoneal abscess
CPT/HCPCS: 36415; 71275; 74177; 80053; 81003; 83605; 84703; 85025; 87040; 87811; 93971; J2543; J3370; J7050; Q9967